=== PATIENT | female | born 1945 | race Caucasian/White ===

== ENCOUNTER → 2016-09-25 | Outpatient (CLI) | payer MEDICARE ==
[~2016-09-25] MED LIST: AMLO5TAB PO; ASCORBIC ACID500 M2 PO; ASPIRIN 81MG TA81 MG PO; CARVEDILOL 1212.5 MG PO; CARVEDILOL25 MG PO; CELEXA10 M1 PO; CENTRUM MULTIV1 EACH PO; CENTRUM SILVER1 TAB PO; CITALOPRAM10 M1 PO; COREG 12.5 MG12.5 MG PO; COREG 6.25MG6.25 MG PO; COREG25 MG PO; CRESTOR10 MG PO; HYDROCHLOROTH12.5 M1 PO; KEFLEX 500MG.500 MG PO; LISINOPRIL 20MG20 MG PO; LISINOPRIL40 MG PO; MULTIVITAMIN1 SGL PO; NORVASC 5MG. TAB5 MG PO; OMEPRAZOLE20 MG PO; PLAVIX 75MG TAB75 MG PO; POTASSIUM GLUC595 MG PO; PROAIR HFA0.09 MG/AC IH; PROTONIX 40MG T40 MG PO; VESICARE10 MG PO; VITAMIN D1000 IU PO; VITAMIN D31000 IU PO; XARELTO10 MG PO
[2016-09-25 08:25] LABS: BUN 16 mg/dL (7-18)
[2016-09-25 08:26] LABS: GFR (ESTIMATED) 49 ML/MIN (59-)
--- NOTE | 2016-09-25 23:28 | RADIOLOGY REPORT PS360 ---
CTA-CHEST Ordering Physician: Juan Valverde MD Patient Age: 71 years: Female HISTORY: SOA,RIGHT LEG PAIN,RLEG EDEMA HISTORY of blood clots per patient. Right leg pain and edema. Short of breath. TECHNIQUE: Helical CT scanning performed through the chest CT cc [id number] and L of normal saline. From the obtain thin section thickened MIP be images in the axial coronal and sagittal plane were performed FINDINGS . The main pulmonary artery as well as the main right and left pulmonary artery appear normal. However there is a subtle decreased density throughout a branch to the lingula noted on the initial axial image 44. Some of this is due to streak artifact but I am suspect there may be a very subtle resolving intraluminal thrombus in this region. Also on close inspection suggestion of threadlike intraluminal lucency which may reflect very minor thrombus at the anterior right upper lobe that the order vessel axial image 41 /42. These are extremely minor observations and somewhat equivocal.. However they do raise some concern regarding these areas. The major ranches towards the lower lobes appear satisfactory otherwise aorta is normal in caliber. A small nonspecific 5 mm nodule seen anterior aspect of right middle lobe.. Nonspecific likely benign but would benefit from follow-up. Also tiny 3 mm nodule just the just lateral to the right enoch but noted a which would benefit from follow-up as well. These are barely appreciable but noted on thickness images Mediastinum. Heart appears normal in size with coronary artery calcification LAD and and first diagonal.. Which IMPRESSION: 1. The main and central pulmonary arteries appear satisfactory. No pulmonary embolism of these major central pulmonary artery vessels. 2 However -there Subtle decreased density within a fourth order branch to the lingula, and a small threadlike intraluminal lower density feature anterior RUL fifth order vessel.. --- Although more subtle lesions are moderately suspect for small areas of minor pulmonary emboli involving small more peripheral vessels. Correlation required. 2. A small nonspecific 5 mm nodule RML lobe. Most likely benign but would benefit from follow-up. 3. Otherwise lungs clear no pneumonia. No CHF
== END ==
LOC: RAD 07:36
PROVIDERS: Internal Medicine
DX: R06.02 Shortness of breath (principal); M79.604 Pain in right leg; R60.0 Localized edema
CPT/HCPCS: Q9967